=== PATIENT | female | born 1995 | race Hispanic/Latino ===

== ENCOUNTER 2017-12-27 04:54 | Emergency (ER) | payer OTHER, SELFPAY | END 2017-12-27 05:19 | disposition home or self-care (01) | LOC: ERS 04:54 | DX: G56.01 Carpal tunnel syndrome, right upper limb (principal); F32.9 Major depressive disorder, single episode, unspecified; F41.9 Anxiety disorder, unspecified; F17.210 Nicotine dependence, cigarettes, uncomplicated | CPT/HCPCS: 99283 ==